=== PATIENT | female | born 1980 | race Caucasian/White ===

== ENCOUNTER 2017-12-30 11:24 | Emergency (ER) | payer BC, SELFPAY ==
[2017-12-30 11:26] VITALS: BP 122/86; PULSE 73; RESP 14; TEMP 36.9; O2SAT 97; BMI 32.3
--- NOTE | 2017-12-30 11:42 | EKG12_ITS ---
Test Reason : CP Blood Pressure : / mmHG Vent. Rate : 061 BPM Atrial Rate : 061 BPM P-R Int : 146 ms QRS Dur : 082 ms QT Int : 452 ms P-R-T Axes : 037 025 035 degrees QTc Int : 455 ms Normal sinus rhythm Normal ECG Confirmed by JOHAN DLEACRUZ ([id number]), department editor ENRIQUE BOYD ([id number] on 01/03/2018 1:42:22 PM Referred By: DARIUS Confirmed By:JOHAN DELACRUZ
--- NOTE | 2017-12-30 11:45 | RAD_ITS ---
STUDY: X-RAY CHEST REASON FOR EXAM: Female, 37 years old. Intermittent chest pain and fatigue. History of autoimmune disease. TECHNIQUE: Single AP portable view of the chest. COMPARISON: None. FINDINGS: The lungs are clear and expanded. There is no demonstrated pleural abnormality. Normal size heart. Normal mediastinum and juliann. Normal visualized pulmonary arteries. Normal visualized aortic arch and descending thoracic aorta. Normal visualized thoracic spine. Normal visualized ribs, clavicles, and shoulders. There is no demonstrated abnormality of the visualized soft tissue structures of the upper abdomen. RAD/Chest 1 View (Portable) IMPRESSION: Normal x-ray examination of the chest. Electronically Signed: Izaiah Tafoya DO at 12:00 EDT Tel [phone], Service support ,
[2017-12-30] MEDS: Aspirin 81 MG TAB.CHEW 324 MG PO (12:13)
[2017-12-30] MEDS: 0.9% Normal Saline 1,000 ML 150 ML IV (12:14)
[2017-12-30 12:15] LABS: Absolute Lymphocyte Count 2.27 X10^3/ul (0.83-4.51); Absolute Neutrophil Count 2.6 X10^3/uL (2.0-7.7); Basophil# 0.02 X10^3/uL; Basophil% 0.4 % (0-1); Eosinophil# 0.06 X10^3/uL; Eosinophils% 1.1 % (0-5); Hematocrit 35.2 % (37-47); Hemoglobin 11.8 g/dl (12.0-15.0); Lymphocyte # 2.27 X10^3/ul (4.0); Lymphocyte % 42.4 % (19-41); Mean Corp Hgb Conc 33.5 g/gl (32-36); Mean Corpuscular Volume 86.5 fL (81-99); Mean Platelet Vol. 8.6 fl (6.2-12.0); Monocyte# 0.36 X10^3/uL; Monocyte% 6.7 % (0-10); Neutrophil # 2.64 X10^3/uL (2.7-7.7); Neutrophil % 49.2 % (47-70); POSITIVE COUNT NO; POSITIVE DIFFERENTIAL NO; POSITIVE MORPHOLOGY NO; Platelet Count 258 K/mm3 (150-450); RBC Distribution Width CV 13.2 % (11.6-14.6); RBC Distribution Width SD 41.2 fl (35.1-43.9); Red Blood Count 4.07 M/mm3 (4.2-5.4); White Blood Count 5.4 K/mm3 (4.4-11.0)
[2017-12-30 12:16] VITALS: BP 110/65; PULSE 75; RESP 13; O2SAT 96
[2017-12-30 12:27] LABS: Anion Gap 9 (5-15); BUN 10 mg/dL (7-18); BUN/Creat Ratio 13.5 RATIO (10-20); Calcium,Total 9.2 mg/dL (8.5-10.1); Chloride 102 mmol/L (98-107); Creatinine, Serum 0.74 mg/dL (0.55-1.02); EST Glomerular Filtration Rate 94 mL/min (>60); Est Glom Filt Rate - Afr Amer 113 mL/min (>60); Estimated Creatinine Clearance 112.56 ml/min; Glucose 88 mg/dL (74-106); Potassium 3.9 mmol/L (3.5-5.1); Sodium Level 137 mmol/L (136-145)
[2017-12-30 12:32] LABS: D-Dimer Quantitative (DVT/PE) < 0.27 FEU/ug/m (0.27-0.49)
--- NOTE | 2017-12-30 12:39 | ED.VISSUMM ---
- ER Visit Summary Date of Service: 12/30/17 Chief Complaint: [Chest pain] History of Present Illness: The patient is a 37 F presents the emergency department complaint of chest discomfort that she initially noticed last evening. Patient while making dinner had a sudden onset of sharp stabbing pain to the left chest was very localized and lasted about 6 or 7 minutes. Patient did note that it was worse with deep breath. Patient states she has been under increased stress of late. This morning patient had another episode of discomfort that lasted about 10 minutes in the same spot and felt the same way. Patient states that she got a bit sweaty with it. There is no radiation of the pain. Patient does not feel short of breath with it she had no palpitations with it. Patient is not been having chest pain or shortness of breath with activity or exertion. [] Physical Examination: [HEENT-PERRLA, EOMI. Cranial nerves II through XII grossly intact. TMs clear. Mucous membranes moist. No adenopathy. Cardiovascular-regular rate and rhythm without murmur or ectopy Lungs-clear to auscultation, chest wall stable without crepitus or subcu emphysema. Chest wall is nontender. Abdomen-normoactive bowel sounds, soft, nontender, no rebound or rigidity, no peritoneal signs. Extremities-intact ?4, normal range of motion, normal pulses, atraumatic] Test Results: [EKG obtained on arrival shows sinus rhythm with a ventricular rate of 61 bpm with no acute ST segment changes. CBC with differential obtained showed a white count of 5.4, hemoglobin 11.8, hematocrit 35, platelets 258. Chemistries unremarkable. Troponin was less than 0.015. D-dimer was normal at less than 0.27. Chest x-ray was normal.] Emergency Department Course and Treatment: [Patient received aspirin in the emergency department. Patient remained pain-free throughout her stay.] At this point I do not feel patient's chest pain is cardiac in etiology as it is very atypical and patient has no significant risk factors for coronary artery disease. Treatment Plan: [Patient advised to follow-up with her primary care physician within next 5-7 days.] Disposition: [Discharged home in stable condition. Patient advised to return if worsening chest pain, increasing shortness of breath, fever, or condition should worsen in any way.] Impression: [Atypical chest pain-resolved] This note was generated with Dragon dictation software. It may contain incorrect words, spelling, and punctuation that were not noted in review of the chart prior to signing ED Disposition - Plan for ED Patient: Chief Complaint: Chest Pain Referrals: Doyle Schroeder DO [Primary Care Provider] -
--- NOTE | 2017-12-30 12:42 | ED.DEP ---
ED Disposition - Plan for ED Patient: Chief Complaint: Chest Pain Instructions: ED Chest Pain Atypical Unkn Cause Referrals: Doyle Schroeder DO [Primary Care Provider] - 5-7 Days
[2017-12-30 12:56] VITALS: BP 97/71; PULSE 74; RESP 15; O2SAT 97
--- NOTE | 2017-12-30 12:58 | ED.RN ---
REVIEWED D/C INSTRUCTIONS, FOLLOW UP CARE, AND S/S THAT WOULD WARRANT A RETURN TO THE ED WITH PT. PT VERBALIZED AN UNDERSTANDING AND DENIES FURTHER QUESTIONS FOR THIS RN. PT SKIN P/W/D, RESP EVEN AND UNLABORED, PT A&O X 3, NO DISTRESS NOTED. PT AMBULATED OUT OF ED, GAIT STEADY.
== END 2017-12-30 13:00 | disposition home or self-care (01) ==
LOC: ED 12:19
PROVIDERS: Emergency Provider Emergency Medicine; Family Provider Student in an Organized Health Care Education/Training Program; PCP Student in an Organized Health Care Education/Training Program
DX: R07.89 Other chest pain (principal)
CPT/HCPCS: 71045; 80048; 84484; 85025; 85379; 93005; 96360; 99285; J7030; A4216

== ENCOUNTER 2023-03-22 16:09 | Emergency (ER) | payer BC, SELFPAY ==
[2023-03-22 16:10] VITALS: BP 166/89; PULSE 88; RESP 16; TEMP 36.1; O2SAT 99; BMI 35.6
[2023-03-22 17:17] VITALS: BP 151/85; PULSE 83; RESP 18; O2SAT 98
--- NOTE | 2023-03-22 17:38 | CT_ITS ---
EXAM: CT CERVICAL SPINE WITHOUT INTRAVENOUS CONTRAST CLINICAL INDICATION: injury TECHNIQUE: Helically acquired images were obtained of the cervical spine without intravenous contrast. 2D reformatted images were reviewed. This CT exam was performed using one or more of the following dose reduction techniques: automated exposure control, adjustment of the mA and/or kV according to patient size, and/or use of iterative reconstruction technique. COMPARISON: No relevant prior studies available. FINDINGS: VERTEBRAE: There is straightening of the normal cervical lordosis. No fracture. No traumatic subluxation. No discrete lytic or blastic abnormality. Normal craniocervical junction and cervicothoracic junction. DISCS/SPINAL CANAL/NEURAL FORAMINA: Unremarkable. Disc heights are preserved. No critical stenosis. SOFT TISSUES: Unremarkable. No prevertebral soft tissue swelling. LYMPH NODES: Unremarkable. No cervical adenopathy. LUNG APICES: Unremarkable as visualized. Clear. CT/Spine Cervical without Contras IMPRESSION: 1. No acute osseous abnormalities of alignment. 2. Straightening of the normal cervical lordosis which may be due to a muscular strain. Electronically Signed: Marko Membreno MD at 18:47 EDT ,
--- NOTE | 2023-03-22 17:38 | CT_ITS ---
EXAM: CT HEAD WITHOUT INTRAVENOUS CONTRAST CLINICAL INDICATION: injury TECHNIQUE: Multiple axial images were obtained of the head without intravenous contrast. This CT exam was performed using one or more of the following dose reduction techniques: automated exposure control, adjustment of the mA and/or kV according to patient size, and/or use of iterative reconstruction technique. COMPARISON: No relevant prior studies available. FINDINGS: BRAIN AND EXTRA-AXIAL SPACES: Unremarkable. No intra- or extra-axial hemorrhage. No evidence of acute infarct. No intracranial mass or mass effect. There is preservation of the stoll/white matter interface. Posterior fossa structures are unremarkable. Ventricles are appropriate for age. No hydrocephalus. Basal cisterns are patent. BONES/JOINTS: Unremarkable. No discrete lytic or blastic abnormalities. SINUSES: Unremarkable as visualized. Clear. MASTOID AIR CELLS: Unremarkable. Clear. ORBITS: Visualized globes, extraocular muscles, optic nerves and retrobulbar fat appear unremarkable. CT/Brain/Head without Contrast IMPRESSION: Negative head/brain CT without intravenous contrast. Electronically Signed: Marko Membreno MD at 18:20 EDT ,
[2023-03-22] MEDS: Acetaminophen 500 MG Tablet 1000 MG PO (17:44)
--- NOTE | 2023-03-22 17:44 | EX.ED.DYSGE1 ---
HPI History of Present Illness Chief Complaint: Head Injury Informant: patient Onset/Context/Timing Onset: Today Narrative Narrative: Patient presents after head injury this morning. She was trying to remove a window air conditioning unit when it fell outside of the window. The cord was wrapped around her arm and she was pulled forward striking her face against the window. The window did not break. She has a very superficial abrasion along the inferior aspect of the left nostril. She states her teeth feel a little loose. She complains of a headache and some neck pain. PFSH PFSH Home Medications sertraline 50 mg tablet 100 mg PO BID 11/30/13 [History Last Taken 11/29/13 22:00 50 mg] B-complex with vitamin C 1 ea PO DAILY 12/30/17 [History Last Taken Unknown] black cohosh 200 mg capsule 200 mg PO BID 12/30/17 [History Last Taken Unknown] cholecalciferol (vitamin D3) 125 mcg (5,000 unit) capsule 5,000 unit PO DAILY 12/30/17 [History Last Taken Unknown] drospirenone 3 mg-ethinyl estradiol 0.03 mg tablet 1 tab PO DAILY 12/30/17 [History Last Taken Unknown] magnesium chloride 64 mg (magnesium chloride) tablet,delayed release 64 mg PO DAILY 12/30/17 [History Last Taken Unknown] bupropion HCl 150 mg tablet,12 hr sustained-release mg PO 03/22/23 [History Last Taken Unknown] buspirone 10 mg tablet mg 03/22/23 [History Last Taken Unknown] Allergy/AdvReac Type Severity Reaction Status Date / Time No Known Allergies Allergy Verified 03/22/23 16:10 Social History Smoking Status: Former smoker ROS ROS ED Constitutional Constitutional ED: Denies chills or fever(s) Eyes Eyes: Reports other Details: Mild light sensitivity ; Denies change in vision or discharge from eye(s) ENT ENT ED: Denies discharge from eye(s), rhinorrhea or sore throat Cardiovascular Cardiovascular: Denies chest pain Respiratory/Chest Respiratory/Chest: Denies cough or dyspnea Gastrointestinal Gastrointestinal: Denies abdominal pain, diarrhea, nausea or vomiting Musculoskeletal Musculoskeletal: Reports neck pain; Denies back pain or extremity pain Integumentary Denies Abrasions or rash Neurologic Neurologic: Reports headache(s); Denies weakness Allergic/Immunologic Allergic/Immunologic ED: Denies lip swelling or urticaria EXAM Physical Exam Const Vital Signs: 03/22/23 16:10 03/22/23 17:17 03/22/23 17:17 Temperature 97 F L Temperature Source Temporal Pulse Rate 88 83 Respiratory Rate 16 18 Respiratory Effort Normal Non-Labored Respiratory Depth Normal Respiratory Pattern Normal Blood Pressure 166/89 H 151/85 H Blood Pressure Mean 114 107 Pulse Ox 99 98 Oxygen Delivery Method Room Air Room Air Positive well nourished and well developed General Appearance ED: well developed HEENT Reports normocephalic and head/scalp atraumatic HEENT Narrative: Superficial abrasion along the inferior acid of the left nostril. No active bleeding. Teeth appear stable this time. Eyes PERRL and EOMs intact bilaterally Neck supple Chest Wall inspection of chest normal and palpation of chest normal Resp normal respiratory effort and clear to auscultation bilaterally Cardio regular rate and regular rhythm GI normal to inspection, nondistended, normoactive bowel sounds Palpation: soft Extremity normal to inspection Neuro oriented x3 and no sensory deficits noted Sensorium / Orientation: alert Motor Exam: strength 5/5 throughout Psych mental status grossly normal MDM MDM MDM Narrative Medical decision making narrative: Patient given Tylenol for headache. CT scan of the head and C-spine obtained to evaluate for fracture, edema, bleed. Radiography Diagnostic Testing: Clinical Impression(s) from Imaging Studies Brain CT 03/22/23 17:38 IMPRESSION: Negative head/brain CT without intravenous contrast. Electronically Signed: Marko Membreno MD at 18:20 EDT , Cervical Spine CT 03/22/23 17:38 IMPRESSION: 1. No acute osseous abnormalities of alignment. 2. Straightening of the normal cervical lordosis which may be due to a muscular strain. Electronically Signed: Marko Membreno MD at 18:47 EDT , Treatment and Re-Evaluation :: CT scan of the head reveals no acute findings. CT of the C-spine significant only for slight straightening of the normal cervical lordosis. Patient will continue Tylenol and ibuprofen at home. Return instructions given. Discharge Plan Triage Chief Complaint: Head Injury ED Provider: Karla Guerrero Dx/Rx/DC Orders Clinical Impression: Closed head injury, Cervical strain Instructions: ED Head Injury (Adult), ED Neck Sprain or Strain Prescriptions: No Action sertraline 50 MG tablet 100 mg PO BID drospirenone-ethinyl estradiol 0 tablet 1 tab PO DAILY Patient Comments: cholecalciferol (vitamin D3) 5,000 UNIT capsule 5,000 unit PO DAILY B-complex with vitamin C 1 EACH tablet 1 ea PO DAILY black cohosh 200 MG capsule 200 mg PO BID magnesium chloride 64 MG tablet,delayed release (DR/EC) 64 mg PO DAILY bupropion HCl 150 mg tablet sustained-release 12 hr PO Patient Comments: TAKE 1 TABLET BY MOUTH TWICE A DAY buspirone 10 mg tablet Patient Comments: TAKE 1 TO 1 & 1/2 TABLETS BY MOUTH THREE TIMES DAILY. Primary Care Provider: Doyle Schroeder Referrals: Doyle Schroeder, DO [Primary Care Provider] - 1 Week if not improving Disposition Disposition: Home, Self Care
[2023-03-22 19:35] VITALS: BP 151/85; PULSE 83; RESP 18; O2SAT 98
== END 2023-03-22 19:37 | disposition home or self-care (01) ==
PROVIDERS: Emergency Provider Emergency Medicine; PCP Student in an Organized Health Care Education/Training Program; Visit Provider Emergency Medicine
DX: S09.90XA Unspecified injury of head, initial encounter (principal); S16.1XXA Strain of muscle, fascia and tendon at neck level, initial encounter; Z87.891 Personal history of nicotine dependence; W22.09XA Striking against other stationary object, initial encounter; Y93.89 Activity, other specified
CPT/HCPCS: 70450; 72125; 99282

== ENCOUNTER 2024-09-20 09:02 | Emergency (ER) | payer BC, SELFPAY ==
[2024-09-20 09:03] VITALS: BP 151/99; PULSE 101; RESP 16; TEMP 36.7; O2SAT 98; BMI 32.1
--- NOTE | 2024-09-20 09:18 | EKG12_ITS ---
Test Reason : CP Blood Pressure : */* mmHG Vent. Rate : 84 BPM Atrial Rate : 84 BPM P-R Int : 146 ms QRS Dur : 80 ms QT Int : 382 ms P-R-T Axes : 35 22 38 degrees QTcB Int : 451 ms Normal sinus rhythm Normal ECG Confirmed by Satish Hampton ([id number]), online content editor MARGARITO ANN ([id number]) on 09/24/2024 6:36:57 AM Referred By: Confirmed By: Satish Hampton
--- NOTE | 2024-09-20 09:19 | EDS_ITS ---
HPI History of Present Illness Chief Complaint: Chest Pain Informant: patient Narrative Narrative: 44-year-old female presenting to the emergency room with left upper chest pain. Patient states for the past couple days she has had an achy sensation in the left upper chest left neck. She does have a sharp component with that at times. It seems worse when she lays down. She also noticed when laying down that she is feeling a crackling with breathing. She denies any cough runny nose or recent viral infections but does note she had COVID in July. She denies any leg swelling. No known heart disease or aortic family history. No prior DVT or PE. No recent trips. No known malignancy. She is a non-smoker. She denies rash. She notes that with her anxiety the achy sensation is known to her but the occasional sharpness is not. It is not particularly worse with range of motion of the shoulder or the neck. [facility] Medical History (Updated 09/20/24 @ 10:[address] Martinez Maloney, DO) Anxiety Home Medications ?Medication ?Instructions ?Recorded ?Last Taken ?Type sertraline 50 mg tablet 100 mg PO BID 11/30/1311/29 22:00 History 50 mg B-complex with vitamin C 1 ea PO DAILY 12/30/17 Unkno wn History black cohosh 200 mg capsule 200 mg PO BID 12/30/17 Unk nown History cholecalciferol (vitamin D3) 125 5,000 unit PO DAILY 0 12/30/17 Unknown History mcg (5,000 unit) capsule drospirenone 3 mg-ethinyl 1 tab PO DAILY 12/30/17 Unkn own History estradiol 0.03 mg tablet magnesium chloride 64 mg 64 mg PO DAILY 12/30/17 Unkn own History (magnesium chloride) tablet,delayed release bupropion HCl 150 mg tablet,12 hr mg PO 03/22/23 Unkno wn History sustained-release buspirone 10 mg tablet mg 03/22/23 Unknown History Allergy/AdvReac Type Severity Reaction Status Date / Time gluten Allergy Mild STOMACH Verified 09/20/24 09:03 Social History (Updated 09/20/24 @ 09:32 by Silvina Stoner) household members: significant other Smoking Status: Former smoker ROS ROS ED Constitutional Constitutional ED: Denies chills, fever(s) or weight loss Eyes Eyes: Denies change in vision or diplopia ENT ENT ED: Denies ear pain, rhinorrhea or sore throat Cardiovascular Cardiovascular: Reports as per HPI and chest pain; Denies orthopnea, palpitations or racing heartbeat Respiratory/Chest Respiratory/Chest: Denies cough, dyspnea or orthopnea Gastrointestinal Gastrointestinal: Denies abdominal pain, diarrhea, nausea or vomiting Genitourinary Genitourinary ED: Denies dysuria, hematuria or urinary frequency Musculoskeletal Musculoskeletal: Reports neck pain; Denies arthralgias, back pain or myalgias Integumentary Denies abscess or rash Neurologic Neurologic: Denies headache(s), paresthesias or weakness Psychiatric Psychiatric: Denies anxiety, depression, suicidal ideation or suicidal thoughts Endocrine Endocrinology: Denies polydipsia, polyphagia or polyuria Allergic/Immunologic Allergic/Immunologic ED: Denies mouth swelling, tongue swelling or urticaria EXAM Physical Exam Const Vital Signs: 09/20/24 09:03 09/20/24 09:35 09/20/24 10:02 Temperature 98.1 F Temperature Source Oral Pulse Rate 101 H 83 Respiratory Rate 16 12 Respiratory Effort Normal Non-Labored Respiratory Pattern Normal Blood Pressure 151/99 H 136/87 H Blood Pressure Mean 116 103 Pulse Ox 98 97 Oxygen Delivery Method Room Air Positive well nourished and well developed General Appearance ED: well developed HEENT Reports normocephalic, head/scalp atraumatic and moist mucous membranes Eyes PERRL and EOMs intact bilaterally Neck no lymphadenopathy, supple and no JVD Resp normal respiratory effort and clear to auscultation bilaterally Cardio regular rate, regular rhythm and no murmurs GI normal to inspection, nondistended, normoactive bowel sounds and non-tender Palpation: soft Back/Spine no CVA tenderness and normal ROM Extremity normal to inspection General Extremety ED: Negative for edema General Extremity: Negative for edema Neuro oriented x3 and CN's II-XII intact bilaterally Sensorium / Orientation: alert Motor Exam: strength 5/5 throughout Psych mental status grossly normal Mood & Affect: Negative for depressed or tearful Skin no rashes or lesions noted and no wounds MDM MDM MDM Narrative Medical decision making narrative: Differential diagnosis includes but not limited to acute coronary syndrome pericarditis myocarditis pulmonary embolism aortic dissection pleural effusion pneumonia EKG is a normal sinus rhythm with a ventricular rate of 84 bpm. CTA of the chest does not demonstrate an obvious pulmonary embolism, pneumonia, aortic dissection or aneurysm, pleural effusion or other obvious intracardiac findings. White count is normal at 9 hemoglobin 12.7. Troponin is less than 6 BNP is 72. BMP is within normal limits. At this point I think the patient can be discharged home. We talked about other potential causes such as shingles costochondral inflammation/chest wall pain. I would recommend anti-inflammatories if continued symptoms 3 to 5 days follow-up with primary care return if worsening. History & Record Review Discussion w/independent historian: Patient and Significant other Lab Data Attestation: I reviewed the patient's lab results. Labs: Laboratory Results - last 24 hr 09/20/24 09:25 WBC 9.0 RBC 4.34 Hgb 12.7 Hct 38.1 MCV 87.8 MCH 29.3 MCHC 33.3 RDW Std Deviation 41.8 RDW Coeff of Frandy 12.9 Plt Count 310 MPV 8.7 Immature Gran % (Auto) 0.300 Neut % (Auto) 70.6 H Lymph % (Auto) 23.5 [place] % (Auto) 4.7 Eos % (Auto) 0.7 Baso % (Auto) 0.2 Absolute Neuts (auto) 6.4 Absolute Lymphs (auto) 2.11 Nucleated RBC % 0 Sodium 138 Potassium 4.0 Chloride 103 Carbon Dioxide 22.5 Anion Gap 13 BUN 12 Creatinine 0.96 Estim Creat Clear Calc 96.50 Est GFR (MDRD) Non-Af 75 BUN/Creatinine Ratio 12.3 Glucose 87 Calcium 9.3 Troponin T High Sens < 6 NT pro BNP II 72 Radiography Diagnostic Testing: Clinical Impression(s) from Imaging Studies Chest CTA 09/20/24 10:00 IMPRESSION: No pulmonary embolism is identified. Some of the distal pulmonary arteries cannot be evaluated due to suboptimal opacification. Reading Location: [facility], [facility] EKG Initial EKG: Attestation: I personally reviewed and interpreted this EKG as follows: Comments: Normal sinus rhythm ventricular rate of 84 bpm Discharge Plan Triage Chief Complaint: Chest Pain ED Provider: Martinez Maloney Dx/Rx/DC Orders Clinical Impression: Chest pain Instructions: ED Chest Pain, Noncardiac Prescriptions: No Action sertraline 50 MG tablet 100 mg PO BID drospirenone-ethinyl estradiol 0 tablet 1 tab PO DAILY Patient Comments: cholecalciferol (vitamin D3) 5,000 UNIT capsule 5,000 unit PO DAILY B-complex with vitamin C 1 EACH tablet 1 ea PO DAILY black cohosh 200 MG capsule 200 mg PO BID magnesium chloride 64 MG tablet,delayed release (DR/EC) 64 mg PO DAILY bupropion HCl 150 mg tablet sustained-release 12 hr PO Patient Comments: TAKE 1 TABLET BY MOUTH TWICE A DAY buspirone 10 mg tablet Patient Comments: TAKE 1 TO 1 & 1/2 TABLETS BY MOUTH THREE TIMES DAILY. Primary Care Provider: Doyle Schroeder Referrals: Doyle Schroeder, DO [Primary Care Provider] - 3-5 Days if not improving Print Language: Serbian Disposition Disposition: Home, Self Care
[2024-09-20 09:33] LABS: Absolute Lymphocyte Count 2.11 X10^3/uL (0.83-4.51); Absolute Neutrophil Count 6.4 X10^3/uL (2.0-7.7); Basophil# 0.02 X10^3/uL; Basophil% 0.2 % (0-1); Eosinophil# 0.06 X10^3/uL; Eosinophils% 0.7 % (0-5); Hematocrit 38.1 % (37-47); Hemoglobin 12.7 g/dL (12.0-15.0); Lymphocyte # 2.11 X10^3/ul (0.83-4.51); Lymphocyte % 23.5 % (19-41); Mean Corp Hgb Conc 33.3 g/dL (32-36); Mean Corpuscular Hgb 29.3 pg (27.0-32.0); Mean Corpuscular Volume 87.8 fL (81-99); Mean Platelet Vol. 8.7 fl (6.2-12.0); Monocyte# 0.42 X10^3/uL; Monocyte% 4.7 % (0-10); NRBC Flagged by Analyzer 0 % (0-5); Neutrophil # 6.35 X10^3/uL (2.7-7.7); Neutrophil % 70.6 % (47-70); Platelet Count 310 K/mm3 (150-450); RBC Distribution Width CV 12.9 % (11.6-14.6); RBC Distribution Width SD 41.8 fl (35.1-43.9); Red Blood Count 4.34 M/mm3 (4.2-5.4)
[2024-09-20 09:58] LABS: Troponin T High Sensitivity < 6 ng/L (<=14)
[2024-09-20 10:00] LABS: Anion Gap 13 (5-15); BUN 12 mg/dL (4-19); BUN/Creat Ratio 12.3 RATIO (10-20); Calcium,Total 9.3 mg/dL (7.6-11.0); Carbon Dioxide 22.5 mmol/L (21.0-32.0); Chloride 103 mmol/L (98-108); Creatinine, Serum 0.96 mg/dL (0.70-1.20); EST Glomerular Filtration Rate 75 (>60); Glucose 87 mg/dL (70-99); Pro- Brain NATRIURETIC PEPTIDE 72 pg/mL (<=450); Sodium Level 138 mmol/L (133-145)
--- NOTE | 2024-09-20 10:00 | CT_ITS ---
EXAM: CT Angiography Chest Without and With Intravenous Contrast CLINICAL INDICATION: PULMONARY EMBOLISM TECHNIQUE: Axial computed tomographic angiography images of the chest without and with intravenous contrast. This CT exam was performed using one or more of the following dose reduction techniques: automated exposure control, adjustment of the mA and/or kV according to patient size, and/or use of iterative reconstruction technique. MIP reconstructed images were created and reviewed. COMPARISON: No relevant prior studies available. FINDINGS: LIMITATIONS: Suboptimal opacification of the pulmonary arteries. PULMONARY ARTERIES: No pulmonary embolism is identified. Some of the distal pulmonary arteries cannot be evaluated due to suboptimal opacification. AORTA: No acute findings. No thoracic aortic aneurysm. LUNGS AND PLEURAL SPACES: Dependent atelectasis on the left. No mass. No significant effusion. No pneumothorax. HEART: Unremarkable. No cardiomegaly. No significant pericardial effusion. No evidence of RV dysfunction. BONES/JOINTS: No acute fracture. No dislocation. SOFT TISSUES: Unremarkable. LYMPH NODES: Unremarkable. No enlarged lymph nodes. CT/CTA Chest W/WO Contrast IMPRESSION: No pulmonary embolism is identified. Some of the distal pulmonary arteries can not be evaluated due to suboptimal opacification. Reading [facility]
[2024-09-20 10:02] VITALS: BP 136/87; PULSE 83; RESP 12; O2SAT 97
[2024-09-20 10:59] VITALS: BP 142/86; PULSE 84; RESP 10; TEMP 36.6; O2SAT 98
== END 2024-09-20 11:00 | disposition home or self-care (01) ==
PROVIDERS: Emergency Provider Emergency Medicine; PCP Student in an Organized Health Care Education/Training Program; Visit Provider Emergency Medicine
DX: R07.9 Chest pain, unspecified (principal); Z87.891 Personal history of nicotine dependence; M54.2 Cervicalgia; Z86.16 Personal history of COVID-19; F41.9 Anxiety disorder, unspecified
CPT/HCPCS: 71275; 80048; 83880; 84484; 85025; 93005; 99284; Q9967; A4216